=== PATIENT | male | born 1960 | race Caucasian/White ===

== ENCOUNTER 2017-05-14 07:05 | Outpatient (CLI) | payer SELFPAY ==
[~2017-05-14] VITALS: Ht 182.9 cm; Wt 83.1 kg
[2017-05-14] VITALS (7 sets, daily range): BP systolic 117–1117; BP diastolic 63–93; PULSE 60–81; TEMP 97
[2017-05-14] MEDS ORDERED: SYNTHROID0.5 MG IV (07:28)
[2017-05-14] MEDS ORDERED: SYNTHROID0.05 MG/TA PO (07:28)
[2017-05-14] MEDS ORDERED: MAG-OX 400400 MG/TAB PO (07:29)
[2017-05-14] MEDS ORDERED: B-121000 MCG PO (07:30)
[2017-05-14] MEDS ORDERED: VITAMIN D32000 IU PO (07:31)
[2017-05-14] MEDS ORDERED: FERROUS SULFATE65 MG PO (07:32)
[2017-05-14 10:07] LABS: CEREBROSPINAL TUBE #4; CSF COLOR COLORLESS
[2017-05-14 10:08] LABS: CSF APPEARANCE CLEAR
== END 2017-05-14 09:55 | disposition home or self-care (01) ==
LOC: COL.RAD 07:05
PROVIDERS: Psychiatry & Neurology Neurology
DX: R41.82 Altered mental status, unspecified (principal); R51 Headache

== ENCOUNTER 2017-05-14 16:40 | Emergency (ER) | payer SELFPAY ==
[~2017-05-14] VITALS: Ht 182.9 cm; Wt 81.8 kg
[~2017-05-14 16:40] MED LIST: B-121000 MCG PO; FERROUS SULFATE65 MG PO; MAG-OX 400400 MG/TAB PO; SYNTHROID0.05 MG/TA PO; SYNTHROID0.5 MG IV; VITAMIN D32000 IU PO
[2017-05-14 16:42] VITALS: BP 136/79; TEMP 98.1
[2017-05-14 19:50] VITALS: PULSE 76
== END 2017-05-14 19:50 | disposition home or self-care (01) ==
LOC: COL.ER 16:40
DX: R51 Headache (principal)
CPT/HCPCS: J1200; J1885; J2765; J7030

== ENCOUNTER 2017-05-14 20:39 | Emergency (ER) | payer SELFPAY ==
[~2017-05-14] VITALS: Ht 182.9 cm; Wt 83.2 kg
[2017-05-14 20:45] VITALS: TEMP 98.3
[2017-05-14 22:12] VITALS: BP 144/88; PULSE 80
== END 2017-05-14 22:15 | disposition home or self-care (01) ==
LOC: COL.ER 20:39
DX: R51 Headache (principal)

== ENCOUNTER → 2017-07-14 | Outpatient (CLI) | payer SELFPAY | LOC: COL.CARD 06-10 13:00 | DX: R51 Headache (principal) ==

== ENCOUNTER → 2018-02-04 | Outpatient (CLI) | payer SELFPAY ==
[2018-02-04 17:21] LABS: BASO # 0.1 (0.0-0.2); BASO % 0.7 % (0.0-2.0); EOS # 0.1 (0.0-0.7); EOS % 1.6 % (0-4.0); GRAN # 5.3 (1.4-6.5); GRAN % 71.4 % (42.2-75.2); HEMOGLOBIN 14.1 g/dl (13.5-18.0); LYMPH # 1.4 (1.2-3.4); LYMPH % 18.3 % (20.0-51.0); MEAN CELL VOLUME 92 fl (80.0-100.0); MEAN CORPUSCULAR HEMOGLOBIN 31 pg (27.0-31.0); MEAN CORPUSCULAR HGB CONC 34 g/dl (33.0-37.0); MEAN PLATELET VOLUME 10.3 fl (7.4-10.4); MONO # 0.6 (0.1-0.6); MONO % 7.6 % (1.7-9.3); PLATELET COUNT 194 K/mm3 (130-400); RED BLOOD COUNT 4.55 M/mm3 (4.20-5.60); REDCELL DISTRIBUTION WIDTH-CV 12.8 % (11.5-14.5)
[2018-02-04 17:39] LABS: BILIRUBIN,TOTAL 0.2 mg/dL (0.0-1.0); CREATININE, serum 1.62 mg/dL (0.66-1.25); POTASSIUM 3.8 mmol/L (3.4-5.0); TOTAL PROTEIN 6.6 gm/dL (6.4-8.2)
[2018-02-04 18:02] LABS: VALPROIC ACID (DEPAKENE) 66.4 ug/mL (50.0-100.0)
[2018-02-04 18:09] LABS: THYROID STIMULATING HORMONE 5.03 uIU/mL (0.465-4.680)
== END ==
LOC: COL.RAD 16:25
PROVIDERS: Psychiatry & Neurology Neurology
DX: Z51.81 Encounter for therapeutic drug level monitoring (principal); S00.03XA Contusion of scalp, initial encounter; G43.109 Migraine with aura, not intractable, without status migrainosus; R41.89 Other symptoms and signs involving cognitive functions and awareness